=== PATIENT | female | born 1970 | race Caucasian/White ===

== ENCOUNTER 2023-07-28 08:20 | Outpatient (CLI) | payer BC, SELFPAY ==
--- OUTSIDE RECORDS SUMMARY | 2023-08-01 10:58 | XMS_ITS | Encounter Summary ---
Author Name Unknown Organization [facility] Address [address] [address] Care Team Providers Care [place] Utility Worker Name Role Phone Neela Puente MD Primary Care Provider [phone] Reason for Visit * Reason Comments Refill hydroCHLOROthiazide (ORETIC) 25 MG tablet [Pharmacy Med Name: HYDROCHLOROTHIAZIDE 25MG TABLETS] Encounter Details Date Type Department Care Team Description 02/07/2023 Refill [facility] [address] [place], [place] [phone] [place] [address] [place], [place] [phone] Refill (hydroCHLOROthiazide (ORETIC) 25 MG tablet [Pharmacy Med Name: HYDROCHLOROTHIAZIDE 25MG TABLETS]) Social History Tobacco Use Types Packs/Day Years Used Date Smoking Tobacco: Former Cigarettes 1 15 0 02/21/1994 - 02/21/2009 Smokeless Tobacco: Never Alcohol Use Standard Drinks/Week Comments Not Currently 0 (1 standard drink = 0.6 oz pur e alcohol) PHQ-2 Answer Date Recorded PHQ-2 Score 0 05/24/2022 Sex and Gender Information Value Date Recorded Sex Assigned at Not on file Gender Identity Not on file Sexual Orientation Not on file documented as of this encounter Nursing Notes * Caty Burr - 02/07/2023 11:18 AM CDT Renewed medication per medication refill standing order. Requested Prescriptions Pending Prescriptions Disp Refills hydroCHLOROthiazide (ORETIC) 25 MG tablet [Pharmacy Med Name: HYDROCHLOROTHIAZIDE 25MG TABLETS] 90 Tablet 1 Sig: TAKE 1 TABLET(25 MG) BY MOUTH DAILY * Interface, Out Surescripts Prov Query - 02/07/2023 9:06 AM CDT hydroCHLOROthiazide (ORETIC) 25 MG tablet [Pharmacy Med Name: HYDROCHLOROTHIAZIDE 25MG TABLETS] Medication started: 10/23/2020 Last ordered by NEELA PUENTE: 05/24/2022 (259 days ago) QTY: 90, Refills: 1, Sig: take 1 tablet (25 mg) by mouth daily. (changed but equivalent) -> Refill x 6 months, qty: 90, refills: 1 (until due for an office visit) Last qualifying visit: 05/24/2022 (with NEELA PUENTE) Next scheduled visit: None Cr: 0.6 mg/dL on 07/25/2022 Na: 139 mEq/L on 07/25/2022 K: 4 mEq/L on 07/25/2022 [facility] Embedded Refills, Reference: [id number], 02/07/2023 9:06:46 AM NIECYT, Pool: SHAKIR BETANCOURT REFILL ([id number]) documented in this encounter Plan of Treatment Not on file documented as of this encounter Visit Diagnoses Diagnosis Essential hypertension (HRC) Unspecified essential hypertension documented in this encounter Care Teams [place] Utility Worker Relationship Specialty [place] [address] [place] [address] PCP - General 08/02/13 documented as of this encounter
--- OUTSIDE RECORDS SUMMARY | 2023-08-01 10:58 | XMS_ITS | Encounter Summary ---
Author Name Unknown Organization [facility] Address [address], [place] [address] Care Team Providers Care Production Mechanic Name Role Phone Rod Nicolas MD Primary Care Provider [phone] Encounter Details Date Type Department Care Team Description 09/19/2022 Notes/Orders [facility] [address] [place], [place] [phone] [place] [address] [place], [place] [phone] Screening for colon cancer Social History Tobacco Use Types Packs/Day Years [...] on file documented as of this encounter Plan of Treatment Scheduled Orders Name Type Priority Associated Diagnoses Orde r Schedule FIT Colon Rectal Cancer Screening Lab Routine Screening for colon cancer Expected: 09/19/2022, Expires: 09/19/2023 documented as of this encounter Visit Diagnoses Diagnosis Screening for colon cancer Special screening for malignant neoplasms, colon documented in this encounter Care Teams Production Mechanic Relationship Specialty [place] [address] [place] [address] PCP - General 08/02/13 documented as of this encounter
--- OUTSIDE RECORDS SUMMARY | 2023-08-01 10:58 | XMS_ITS | Encounter Summary ---
Author Name Unknown Organization [facility] Address [address] [place] [address] Care Team Providers Care Zyglo Technician Name Role Phone Neela Puente MD Primary Care Provider Reason for Visit * Reason Comments Refill amLODIPine-valsartan (EXFORGE) 10-320 MG tablet [Pharmacy Med Name: AMLODIPINE-VALSARTAN 10-320MG TABS] Encounter Details Date Type Department Care Team Description 07/07/2023 Refill [facility] [address] [place], [place] [phone] Dominick Byrd, HARNESS FITTER, AGRICULTURAL ECONOMICS PROFESSOR [address] [place] [address] Refill (amLODIPine-valsartan (EXFORGE) 10-320 MG tablet [Pharmacy Med Name: AMLODIPINE-VALSARTAN 10-320MG TABS]) Social History Tobacco Use Types Packs/Day Years [...] as of this encounter Nursing Notes * Radha Knight - 07/08/2023 3:32 PM CST Called and left Voicemail reviewing providers message. Patient was advised to give us a call back or go online to get an appointment scheduled. Also, [employer] message sent. R CHECKER * Neela Puente MD - 07/08/2023 12:38 PM CST Please call patient. Need appointment for refill. R CHECKER * Interface, Out Surescripts Prov Query - 07/07/2023 3:50 AM CST amLODIPine-valsartan (EXFORGE) 10-320 MG tablet [Pharmacy Med Name: AMLODIPINE- VALSARTAN 10-320MG TABS] Medication started: 10/23/2020 Last ordered by DOMINICK BYRD M: 06/06/2023 (31 days ago) QTY: 30, Refills: 0, Sig: take 1 tablet by mouth daily (unchanged) -> Medication cannot be delegated. -> A qualifying visit was not found within the last 2 years. Last qualifying visit: None (A recent visit (in Internal Medicine with NEELA PUENTE) was found) Next scheduled visit: None [facility] Embedded Refills, Reference: [id number], 07/07/2023 3:50:03 AM Horace WELLS: SAHRA Refill [facility] [[id number]] ([id number]) R CHECKER documented in this encounter Plan of Treatment Not on file documented as of this encounter Visit Diagnoses Diagnosis Essential hypertension (HRC) Unspecified essential hypertension documented in this encounter Care Teams Zyglo Technician Relationship Specialty [place] [address] [place] [address] PCP - General 08/02/13 documented as of this encounter
--- OUTSIDE RECORDS SUMMARY | 2023-08-01 10:58 | XMS_ITS | Encounter Summary ---
Author Name Unknown Organization [facility] Address [address] [place] [address] Care Team Providers Care Avionics Installer Name Role Phone Neela Puente MD Primary Care Provider [phone] Reason for Visit * Reason Comments Refill amLODIPine-valsartan (EXFORGE) 10-320 MG tablet [Pharmacy Med Name: AMLODIPINE-VALSARTAN 10-320MG TABS] Encounter Details Date Type Department Care Team Description 02/21/2023 Refill [facility] [address] [place], [place] [phone] [place] [address] [place], [place] [phone] Refill (amLODIPine-valsartan (EXFORGE) 10-320 MG tablet [Pharmacy [...] encounter Nursing Notes * Radha Knight - 02/21/2023 11:23 AM CDT Called and left Voicemail reviewing providers message. Patient was advised to give us a call back or go online to get an appointment scheduled. Also, [employer] message sent. * Neela Puente MD - 02/21/2023 8:47 AM CDT Please call patient. 30 days Rx sent to pharmacy. Will need appointment for future refill. * Interface, Out Surescripts Prov Query - 02/21/2023 3:53 AM CDT amLODIPine-valsartan (EXFORGE) 10-320 MG tablet [Pharmacy Med Name: AMLODIPINE- VALSARTAN 10-320MG TABS] Medication started: 10/23/2020 Last ordered by NEELA PUENTE: 11/17/2022 (96 days ago) QTY: 90, Refills: 0, Sig: take 1 tablet by mouth daily (unchanged) -> Medication cannot be delegated. Last qualifying visit: 05/24/2022 (with NEELA PUENTE) Next scheduled visit: None [facility] Embedded Refills, Reference: [id number], 02/21/2023 3:53:15 AM CDT, Pool: SHAKIR BETANCOURT REFILL ([id number]) documented in this encounter Plan of Treatment Not on file documented as of this encounter Visit Diagnoses Diagnosis Essential hypertension (HRC) Unspecified essential hypertension documented in this encounter Care Teams Avionics Installer Relationship Specialty [place] [address] [place] [address] PCP - General 08/02/13 documented as of this encounter
--- OUTSIDE RECORDS SUMMARY | 2023-08-01 10:58 | XMS_ITS | Encounter Summary ---
Author Name Unknown Organization [facility] Address [address] [address] Care Team Providers Care Software Client Architect Name Role Phone Neela Puente MD Primary Care Provider Reason for Visit * Reason Comments Refill amLODIPine-valsartan (EXFORGE) 10-320 MG tablet [Pharmacy Med Name: AMLODIPINE-VALSARTAN 10-320MG TABS] Encounter Details Date Type Department Care Team Description 11/15/2022 Refill [facility] [address] [place], [place] [phone] [place] [address] [place], [place] [phone] Refill (amLODIPine-valsartan (EXFORGE) 10-320 MG tablet [Pharmacy [...] as of this encounter Nursing Notes * Neela Puente MD - 11/17/2022 9:29 PM CDT Refill for 90 days sent to pharmacy. Please advise patient that she is due to see me for follow-up appointment. Recommend scheduling in person visit. * Interface, Out Analytics Quotient Query - 11/15/2022 6:49 PM CDT amLODIPine-valsartan (EXFORGE) 10-320 MG tablet [Pharmacy Med Name: AMLODIPINE- VALSARTAN 10-320MG TABS] Medication started: 10/23/2020 Last ordered by NEELA PUENTE: 05/24/2022 (175 days ago) QTY: 90, Refills: 1, Sig: take 1 tablet bymouth daily. (unchanged) -> Medication cannot be delegated. Last qualifying visit: 05/24/2022 (with NEELA PUENTE) Next scheduled visit: None [facility] Embedded Refills, Reference: [id number], 11/15/2022 6:49:36 PM CDT, Pool: SHAKIR IMED REFILL ([id number]) documented in this encounter Plan of Treatment Not on file documented as of this encounter Visit Diagnoses Diagnosis Essential hypertension (HRC) Unspecified essential hypertension documented in this encounter Care Teams Software Client Architect Relationship Specialty [place] [address] [place] [address] PCP - General 08/02/13 documented as of this encounter
--- OUTSIDE RECORDS SUMMARY | 2023-08-01 10:58 | XMS_ITS | Clinical Summary ---
Author Name Unknown [facility] Address [address] [place] [address] Care Team Providers Care Medical Genetics Director Name Role Phone Rod Nicolas MD Primary Care Provider [phone] Source Comments You are receiving this document as you are listed as the primary care provider,follow-up provider, or the patient has been referred to you for consultation.This is in compliance with the Medicare and[facility] Hospital[facility] EHR Incentive Program,which states Providers who transition their patient to another setting of careor provider of care or refers their patient to another provider of care shouldprovide summary care record for each transition of care or referral. [facility] Allergies Active Allergy Reactions Criticality Noted Date Comments Amoxicillin Rash 10/01/2013 Medications Medication Sig Dispensed Refills Start Date End Date Status Multiple Vitamin (MULTIVITAMIN OR) Take 1 tablet a day 0 Active [place]-3 Fatty Acids 1200 MG Take 1 tablet a day 0 Active aspirin 81 MG tablet Take 2 tablets by mouth daily (every 24 hours). 3 04/27/2010 Active ALBUterol sulfate HFA 108 (90 Base) MCG/ACT inhalerIndications:Mil d intermittent asthma without complication (HRC) Inhale 2 Puffs every 6 hours as needed (Inhale 2 puffs every 6 hours as needed.). 1 Each 3 10/23/2020 Active atorvastatin (LIPITOR) 40 MG tabletIndications:Mixe d hyperlipidemia (HRC) Take 1 Tablet (40 mg) by mouth daily. 90 Tablet 1 05/24/2022 Active hydroCHLOROthiazide (ORETIC) 25 MG tabletIndications:Esse ntial hypertension (HRC) TAKE 1 TABLET(25 MG) BY MOUTH DAILY 90 Tablet 1 02/07/2023 Active amLODIPine-valsartan (EXFORGE) 10-320 MG tabletIndications:Esse ntial hypertension (HRC) TAKE 1 TABLET BY MOUTH DAILY 30 Tablet 0 06/06/2023 06/05/2024 Active Active Problems Problem Noted Date Diagnosed Date Coronary artery disease invo lving [place] coronary artery of [place] heart without angina pectoris 09/18/2020 Mild intermittent asthma without complication Mixed hyperlipidemia 06/11/2012 Essential hypertension 06/11/2012 Old OK (myocardial infarction) 06/11/2012 Resolved Problems Problem Noted Date Diagnosed Date Resolved Date Tobacco abuse, in remission 06/11/2012 09/18/2020 Dysplastic nevi 06/11/2012 09/18/2020 Vitamin D deficiency 06/11/2012 021 Allergic rhinitis 06/11/2012 09/18/2020 Hyperlipemia 06/11/2012 06/11/2012 Essential hypertension 06/11/201206/11 Depression, major, recurrent , in partial remission 06/11/2012 09/18/2020 CAD (coronary artery disease) 06/11/2012 09/18/2020 Vitamin D deficiency 08/30/2010 012 Overview: LW Onset: 27APR2010 Hyperlipidemia 08/30/2010 06/11/2012 Overview: LW Onset: 2008 Old myocardial infarction 04/27/2010 Overview: LW Modifier: INFERIOR; VASOSPASM VS MICROVASCULAR LW Onset: [id number] ; OK Old Coronary atherosclerosis 04/27/2010 Overview: LW Modifier: ANGIOGRAM W/O SIGNIFICANT STENOSIS LW Onset: [id number] ; CAD NOS ADHD (attention deficit hype ractivity disorder) 12/07/2009 09/18/2020 CAD (coronary artery disease) 12/07/2009 09/18/2020 HTN (hypertension) 12/07/2009 Depressive disorder 10/31/2006 06/11/20 12 Overview: LW Onset: 2002 ; Depression NOS Essential hypertension 10/31/200606/11 Overview: LW Onset: 2004 ; Hypertension Tobacco use disorder 10/31/2006 012 Overview: LW Modifier: QUIT 03/2009 ; Tobacco Abuse Encounters Date Type Department Care Team Description 07/07/[address] [address] Annie Teixeira, DOCTOR OF DENTAL MEDICINE, METAL PLATER Refill (amLODIPine-valsartan (EXFORGE) 10-320 MG tablet [Pharmacy Med Name: AMLODIPINE-VALSARTAN 10-320MG TABS]) 06/05/[address] [address] Rod Nicolas MD Refill (amLODIPine-valsartan (EXFORGE) 10-320 MG tablet [Pharmacy Med Name: AMLODIPINE-VALSARTAN 10-320MG TABS]) 05/09/[address] [address] Rod Nicolas MD Refill (amLODIPine-valsartan (EXFORGE) 10-320 MG tablet) from Last 3 Months Immunizations Name Administration Dates Next Due DT Ped 03/13/1984 DTP 12/09/1973, 0,1968,1968,1968 Flu Vac Preserv Free (3+yrs) 06/11/2012,04/27/20 10 HepA Adult (19+ yrs) 11/13/2017 Influenza IIV4 (Quadrivalent ) 0.5mL (41679) 05/16/2022,03/27/2021,08/11/2014 Influenza, Unspecified Formulation 04/13/2017 MCV4 (Menactra) 11/13/2017 MMR 08/14/1979,07/29/1969 Measles 08/14/1979 Moderna Bivalent 12+ 05/16/2022 OPV, Trivalent (Orimune or tOPV) 974,02/22/1969,1968,1968 PPSV23 (Pneumovax) 09/18/2020 Pfizer Monovalent 12+ Purple Top 05/01/2021,04/0 01/2021,09/26/2020 TDAP (BOOSTRIX) 06/11/2012 Td 04/27/2010 Tdap 02/06/2011 Vaccinia (Smallpox) 10/28/1969 Family History Medical History Relation Name Comments Cancer Father Cancer, Prostate Father Heart Disease Father High Blood Pressure Father Diabetes Mother High Blood Pressure Mother Kidney/Bladder Disease Paternal Grandmother High Blood Pressure Sister Asthma Son 1 Relation Name Status Comments Father Mother Alive Maternal Grandfather Maternal Grandmother Paternal Grandfather pancrea tic cancer Paternal Grandmother Sister Alive Son 1 Alive Son 2 Alive Social History Tobacco Use Types Packs/Day Years [...] on file Sexual Orientation Not on file Last Filed Vital Signs Vital Sign Reading Time Taken Comments Blood Pressure 117/79 03/27/2021 4:35 PM CDT Pulse 71 03/27/2021 4:35 PM CDT Temperature 36.4 ??C (97.5 ??F) 03/12/2015 2:32 PM CD T Respiratory Rate 16 03/12/2015 2:32 PM CDT Oxygen Saturation - - Inhaled Oxygen Concentration - - Weight 65.2 kg (143 lb 12.8 oz) 03/27/2021 4:35 PM CDT Height 158.1 cm (5' 2.25) 09/18/2020 9:54 AM CS T Body Mass Index 26.09 09/18/2020 9:54 AM CLINICAL STAFF ANESTHESIOLOGIST Plan of Treatment Health Maintenance Due Date Last Done Comments HepB (1) 1968 Mammogram 1968 FIT Colon Cancer Screening 2012 Cervical Cancer Screening Due 08/12/2014 08/11/2014, 08/09/2011, 05/16/2006, Additional history exists Zoster/Shingles (1 of 2) 2018 Adult Preventive Visit 09/18/2021 09/18/2020 Pneumococcal (2 - PCV) 09/18/2021 09/18/2020 DTaP/Tdap/Td (10 - Tdap) 06/11/2022 012, 02/06/2011, 04/27/2010, Additional history exists COVID-19 Vaccine ( season) 2023 05/16/2022, 05/01/2021, 10/18/2020, Additional history exists Influenza (#1) 2023 05/16/2022, 03/14, 04/13/2017, Additional history exists Cholesterol 07/25/2027 07/25/2022, 03/0 02/2021, 08/12/2014, Additional history exists IPV (Polio) Completed 12/09/1973, 02/11, 1968, Additional history exists HepA Aged Out 11/13/2017 No longer eligi ble based on patient's age to complete this topic MCV4 Aged Out 11/13/2017 No longer eligi ble based on patient's age to complete this topic HIV Screening (Preventive Services) Completed 07/25/2022 Hep C Screening (Preventive Services) Completed 07/25/2022 Hib Aged Out No longer eligi ble based on patient's age to complete this topic Care Teams Medical Genetics Director Relationship Specialty [place] [address] [place] [address] PCP - General 08/02/13
--- OUTSIDE RECORDS SUMMARY | 2023-08-01 10:58 | XMS_ITS | Encounter Summary ---
Author Name Unknown Organization [facility] Address [address], [place] [address] Care Team Providers Care Tour Leader Name Role Phone Neela Puente MD Primary Care Provider [phone] Reason for Visit * Reason Onset Date Comments Refill Patient Calling Back 04/30/2023 Encounter Details Date Type Department Care Team Description 04/30/2023 Refill [facility] [address] [place], [place] [phone] [place] [address] [place], [place] [phone] Refill; Patient Calling Back Social History Tobacco Use Types Packs/Day Years [...] as of this encounter Nursing Notes * Jessica Bravo RN - 05/08/2023 7:49 PM CDT Further Assistance Needed on Refill from Clinician RN reviewed. Patient did not follow clinician's plan of care. Patient due for follow up Last OV with PCP: 05/24/22 I recommend monitor blood pressure outside of clinic. Return in 6 months. Return sooner with any concerns. Review pended order for accuracy and sign if appropriate, Patient is expecting call back, and [facility] to schedule appointment Requested Prescriptions Refused Prescriptions Disp Refills amLODIPine-valsartan (EXFORGE) 10-320 MG tablet [Pharmacy Med Name: AMLODIPINE- VALSARTAN 10-320MG TABS] 30 Tablet 0 Sig: TAKE 1 TABLET BY MOUTH DAILY Refused By: PERLITA PECK Reason for Refusal: Patient Needs An Appointment * Gina Whyte - 05/08/2023 4:09 PM CDT Patient states medication was denied at pharmacy and will like clarification as to why she is currently out of script please advise * Interface, Out Surescripts Prov Query - 04/30/2023 3:45 AM CDT amLODIPine-valsartan (EXFORGE) 10-320 MG tablet [Pharmacy Med Name: AMLODIPINE- VALSARTAN 10-320MG TABS] Medication started: 10/23/2020 Last ordered by NEELA PUENTE H: 02/21/2023 (68 days ago) QTY: 30, Refills: 0, Sig: take 1 tablet by mouth daily (unchanged) -> Medication cannot be delegated. Last qualifying visit: 05/24/2022 (with NEELA PUENTE) Next scheduled visit: None [facility] Embedded Refills, Reference: [id number], 04/30/2023 3:45:42 AM CDT, Pool: SHAKIR IMED REFILL ([id number]) ETS SALESPERSON documented in this encounter Plan of Treatment Not on file documented as of this encounter Visit Diagnoses Diagnosis Essential hypertension (HRC) Unspecified essential hypertension documented in this encounter Care Teams Tour Leader Relationship Specialty [place] [address] [place] [address] PCP - General 08/02/13 documented as of this encounter
--- OUTSIDE RECORDS SUMMARY | 2023-08-01 10:58 | XMS_ITS | Encounter Summary ---
Author Name Unknown Organization [facility] Address [address], [place] [address] Care Team Providers Care Peer Specialist Name Role Phone Neela Puente MD Primary Care Provider [phone] Reason for Visit * Reason Onset Date Comments Refill 05/09/2023 amLODIPine-valsa rtan (EXFORGE) 10-320 MG tablet Encounter Details Date Type Department Care Team Description 05/09/2023 Refill [facility] [address] [place] [address] [place] [address] [place] [address] Refill (amLODIPine-valsartan (EXFORGE) 10-320 MG tablet) Social History Tobacco Use Types Packs/Day Years [...] Nursing Notes * Neela Puente MD - 05/09/2023 10:14 AM CDT Rx sent to pharmacy. * Interface, Out [facility] Prov Query - 05/09/2023 10:00 AM CDT amLODIPine-valsartan (EXFORGE) 10-320 MG tablet Medication started: 10/23/2020 Last ordered by NEELA PUENTE: 02/21/2023 (77 days ago) QTY: 30, Refills: 0, Sig: take 1 tablet by mouth daily (changed but equivalent) -> Medication cannot be delegated. Last qualifying visit: 05/24/2022 (with NEELA PUENTE) Next scheduled visit: None [facility] Embedded Refills, Reference: [id number], 05/09/2023 10:00:39 AM CDT, Pool: PN REFILL WIZARD ADMIN ([id number]) * Janae Sapp - 05/09/2023 9:59 AM CDT Pt has appt scheduled 05/21/23 for med check/follow up * Interface, Out [facility] Prov Query - 05/09/2023 9:55 AM CDT The patient chart could not be locked at 05/09/2023 9:55 AM by [employer] in order to process thisrefill request. Please try re-routing to attempt to retry processing through [employer]. * Janae Sapp - 05/09/2023 9:54 AM CDT Medications - Refill Request Name of prescribing clinician: Neela Puente MD Additional comments (related to the above concern): Pt out of mediation For this refill, patient would like it filled at the pharmacy listed in Medication Management. If there are questions regarding your request, is it okay to leave a detailed message on your voicemail? Yes Is there anything else I can help you with today? documented in this encounter Plan of Treatment Not on file documented as of this encounter Visit Diagnoses Diagnosis Essential hypertension (HRC) Unspecified essential hypertension documented in this encounter Care Teams Peer Specialist Relationship Specialty [place] [address] [place] [address] PCP - General 08/02/13 documented as of this encounter
--- OUTSIDE RECORDS SUMMARY | 2023-08-01 10:58 | XMS_ITS | Encounter Summary ---
Author Name Unknown Organization [facility] Address [address] [place] [address] Care Team Providers Care Heat Regulator Name Role Phone Neela Puente MD Primary Care Provider [phone] Reason for Visit * Reason Comments Refill amLODIPine-valsartan (EXFORGE) 10-320 MG tablet [Pharmacy Med Name: AMLODIPINE-VALSARTAN 10-320MG TABS] Encounter Details Date Type Department Care Team Description 06/05/2023 Refill [facility] [address] [place], [place] [phone] [place] [address] [place] [address] Refill (amLODIPine-valsartan (EXFORGE) 10-320 MG [...] as of this encounter Nursing Notes * Interface, Out [employer] Prov Query - 06/05/2023 3:52 AM CST amLODIPine-valsartan (EXFORGE) 10-320 MG tablet [Pharmacy Med Name: AMLODIPINE- VALSARTAN 10-320MG TABS] Medication started: 10/23/2020 Last ordered by NEELA PUENTE H: 05/09/2023 (27 days ago) QTY: 30, Refills: 0, Sig: take 1 tablet by mouth daily. (unchanged) -> Medication cannot be delegated. Last qualifying visit: 05/24/2022 (with NEELA PUENTE) Next scheduled visit: None [facility] Embedded Refills, Reference: [id number], 06/05/2023 3:52:33 AM POSITION CLASSIFICATION SPECIALIST, Horace: SHAKIR FP REFILL ([id number]) TION CLASSIFICATION SPECIALIST documented in this encounter Plan of Treatment Not on file documented as of this encounter Visit Diagnoses Diagnosis Essential hypertension (HRC) Unspecified essential hypertension documented in this encounter Care Teams Heat Regulator Relationship Specialty [place] [address] [place] [address] PCP - General 08/02/13 documented as of this encounter
== END 2023-07-28 08:21 | disposition home or self-care (01) ==
LOC: NFLDREF 08-01 10:56
PROVIDERS: PCP Internal Medicine; Referring Provider Internal Medicine; Visit Provider Internal Medicine
DX: E78.5 Hyperlipidemia, unspecified (principal); I10 Essential (primary) hypertension
CPT/HCPCS: 80048; 80061